=== PATIENT | female | born 1985 | race Caucasian/White ===

== ENCOUNTER 2016-10-29 16:22 | Emergency (ER) | payer OTHER ==
[~2016-10-29] VITALS: Ht 152.4 cm; Wt 64.0 kg
[~2016-10-29 16:22] MED LIST: ABILIFY10 MG PO; ABILIFY2 MG PO; AFRIN,GENASAL D15 ML BOTH NARES; ALPRAZOLAM0.25 M2 PO; ALPRAZOLAM0.5 MG PO; AMOX TR-K CLV1 EAC4 PO; BACTRIM,SEPT1 TABLET PO; BENADRYL25 MG PO; BENADRYL50 MG PO; CONCERTA18 MG PO; CONSTULOSE10 GM/15 M PO; CORTIZONE-10 PL57 GM TP; Chromagen, Feogen, M PO; DEBROX15 ML BOTH EARS; DIFLUCAN150 MG PO; ELIMITE 5% CREA60 GM TP; FLEXERIL10 MG PO; FLONASE16 G1 BOTH NARES; HYDROCORTISONE30 G1 TP; INHALER; KEFLEX500 MG PO; MEDROL DOSEPAK4 MG PO; MOTRIN600 MG PO; MOTRIN800 MG PO; MUCUS ER600 MG PO; Motrin PO; NAPROSYN500 MG PO; NAPROXEN500 MG PO; PEPCID40 MG PO; PREDNISONE20 MG PO; PROVENTIL HFA6.7 GM IH; RITALIN; RITALIN LA40 MG PO; RITALIN20 MG PO; TESSALON PERLE100 MG PO; TRAZODONE HCL50 MG PO; XANAX0.5 MG PO; ZITHROMAX Z-PA250 MG PO; ZOFRAN ODT4 MG PO; ZOFRAN4 MG PO; ZOLOFT50 MG PO
[2016-10-29 16:45] LABS: HEMATOCRIT 32.6 % (36.0-46.0); MCHC 34.7 G/DL (30.0-36.0); MCV 89.3 FL (83-99); MEAN PLAT.VOLUME 10.4 uM^3 (9.5-12.4); PLATELET COUNT 263 K/uL (156-360); RBC DIS.WIDTH-SD 40.9 % (39-53); RED BLOOD COUNT 3.65 M/uL (3.80-5.20); WHITE BLOOD COUNT 10.4 K/uL (4.1-10.2)
[2016-10-29 16:58] LABS: CHLORIDE 104 mEq/L (99-109); SODIUM 134 mEq/L (136-147)
[2016-10-29 17:00] LABS: GLUCOSE 71 mg/dL (70-99)
[2016-10-29 17:02] LABS: ANION GAP 9 MEQ/L (2-14); TOTAL BILIRUBIN 0.5 mg/dL (0.0-1.0)
[2016-10-29 17:04] LABS: ALKALINE PHOSPHATASE 39 IU/L (3-129); GFR ESTIMATE (CALCULATED) > 59 mL/min/
[2016-10-29 17:05] LABS: UREA NITROGEN (BUN) 13 mg/dL (9-23)
[2016-10-29 17:34] LABS: QUANTITATIVE HCG 180857.2 MIU/ML
[2016-10-29 19:24] LABS: D-DIMER ELISA 0.34 mg/L FEU (< 0.57)
[2016-10-29 20:17] LABS: ADD MIUA? YES; BILIRUBIN NEGATIVE; BLOOD NEGATIVE; COLOR YELLOW ((YELLOW)); GLUCOSE (STRIP) NEGATIVE; KETONES NEGATIVE; LEUKOCYTES SMALL; NITRITE NEGATIVE; PROTEIN (STRIP) NEGATIVE; SPECIFIC GRAVITY 1.026 (1.000-1.030)
[2016-10-29 20:53] LABS: BACTERIA 1+; CASTS PRESENT /LPF; CRYSTALS NONE SEEN; EPITHELIAL CELLS 1+; HYALINE CASTS 0-5 /LPF; MUCUS 1+; RED BLOOD CELLS 0-5 /HPF (0-5); UCUL ADDED? NO
[2016-10-29] MEDS ORDERED: ZOFRAN4 MG PO (22:42)
[2016-10-29 23:35] VITALS: BP 95/51
== END 2016-10-29 23:58 | disposition home or self-care (01) ==
LOC: EME 16:22
DX: O21.9 Vomiting of pregnancy, unspecified (principal); R10.9 Unspecified abdominal pain; R11.0 Nausea; F17.200 Nicotine dependence, unspecified, uncomplicated; Z3A.10 10 weeks gestation of pregnancy
CPT/HCPCS: 76801; 76802; 80053; 81003; 84702; 85027; 85379; 93005; 99281; 99284

== ENCOUNTER 2016-11-11 11:53 | Emergency (ER) | payer OTHER ==
[~2016-11-11] VITALS: Ht 152.4 cm; Wt 64.7 kg
[2016-11-11 12:44] LABS: HEMATOCRIT 30.9 % (36.0-46.0); MCH 30.8 PG (29.0-34.0); MCV 90.6 FL (83-99); MEAN PLAT.VOLUME 10.1 uM^3 (9.5-12.4); PLATELET COUNT 267 K/uL (156-360); RBC DIS.WIDTH-CV 13.2 % (11.8-14.6); RBC DIS.WIDTH-SD 42.4 % (39-53); RED BLOOD COUNT 3.41 M/uL (3.80-5.20); WHITE BLOOD COUNT 7.5 K/uL (4.1-10.2)
[2016-11-11 13:04] LABS: ANION GAP 7 MEQ/L (2-14); CHLORIDE 101 MEQ/L (99-109); POTASSIUM 3.8 MEQ/L (3.7-5.4); SAMPLE HEMOLYSIS CHECK 0; SAMPLE ICTERIC CHECK 0; SAMPLE LIPEMIA CHECK 0; SODIUM 136 MEQ/L (136-147)
[2016-11-11 13:09] LABS: GFR ESTIMATE (CALCULATED) > 59 mL/min/; GLUCOSE 79 mg/dL (70-99); UREA NITROGEN (BUN) 14 mg/dL (9-23)
[2016-11-11 13:25] LABS: ADD MIUA? YES; BILIRUBIN NEGATIVE; BLOOD NEGATIVE; COLOR YELLOW ((YELLOW)); GLUCOSE (STRIP) NEGATIVE; KETONES NEGATIVE; LEUKOCYTES MODERATE; NITRITE NEGATIVE; PROTEIN (STRIP) NEGATIVE; SPECIFIC GRAVITY 1.025 (1.000-1.030)
[2016-11-11 13:45] LABS: INFLUENZA A VIRAL ANTIGEN NEGATIVE; INFLUENZA B VIRAL ANTIGEN NEGATIVE
[2016-11-11 13:59] LABS: EPITHELIAL CELLS 1+; MUCUS NONE SEEN; RED BLOOD CELLS 0-5 /HPF (0-5); WHITE BLOOD CELLS 20-30 /HPF (0-5)
[2016-11-11 14:00] LABS: BACTERIA 2+; CASTS NONE SEEN /LPF; CRYSTALS NONE SEEN; UCUL ADDED? YES
[2016-11-11] MEDS ORDERED: MACROBID100 MG PO (14:07)
[2016-11-11 14:37] VITALS: BP 102/53
== END 2016-11-11 14:38 | disposition home or self-care (01) ==
LOC: EME 11:53
PROVIDERS: Nurse Practitioner Family
DX: O23.41 Unspecified infection of urinary tract in pregnancy, first trimester (principal); Z3A.12 12 weeks gestation of pregnancy; F17.200 Nicotine dependence, unspecified, uncomplicated
CPT/HCPCS: 80048; 81003; 85027; 87086; 87502; 99281; 99284

== ENCOUNTER 2016-11-15 17:44 | Emergency (ER) | payer OTHER ==
[~2016-11-15] VITALS: Ht 152.4 cm; Wt 64.5 kg
[~2016-11-15 17:44] MED LIST changes: +MACROBID100 MG PO
[2016-11-15 23:53] VITALS: BP 99/54
== END 2016-11-15 23:56 | disposition home or self-care (01) ==
LOC: EME 17:44
DX: S43.401A Unspecified sprain of right shoulder joint, initial encounter (principal); S93.402A Sprain of unspecified ligament of left ankle, initial encounter; Z33.1 Pregnant state, incidental; Z3A.12 12 weeks gestation of pregnancy; W01.0XXA Fall on same level from slipping, tripping and stumbling without subsequent striking against object, initial encounter; Y93.01 Activity, walking, marching and hiking; Y92.480 Sidewalk as the place of occurrence of the external cause
CPT/HCPCS: 73030; 73610; 73630; 99281; 99284

== ENCOUNTER 2017-01-06 19:29 | Outpatient (CLI) | payer OTHER ==
[~2017-01-06] VITALS: Ht 149.9 cm; Wt 65.3 kg
[2017-01-06 19:47] VITALS: BP 99/58
[2017-01-06] MEDS ORDERED: IRON325 MG PO (20:13)
[2017-01-06 22:07] LABS: ADD MIUA? YES; BILIRUBIN NEGATIVE; BLOOD NEGATIVE; COLOR YELLOW ((YELLOW)); GLUCOSE (STRIP) NEGATIVE; KETONES NEGATIVE; LEUKOCYTES SMALL; NITRITE NEGATIVE; PROTEIN (STRIP) NEGATIVE; SPECIFIC GRAVITY 1.031 (1.000-1.030)
[2017-01-06 22:14] LABS: BACTERIA RARE /HPF; EPITHELIAL CELLS 1+ /HPF; MUCUS 2+ /LPF; UNCLASSIFIED CRYSTALS 2+ /HPF; WHITE BLOOD CELLS 30-40 /HPF (0-5)
[2017-01-06 22:38] LABS: CANDIDA DNA PROBE NEGATIVE; GARDNERELLA DNA PROBE NEGATIVE; INTERNAL CONTROL VALID? YES
[2017-01-07 01:36] LABS: AMPHETAMINES QUANT VALUE 0 NG/ML; BARBITUATES QUANT VALUE 0 NG/ML; BENZODIAZEPINES QUANT VALUE 0 NG/ML; BENZODIAZEPINES, URINE SCREEN Negative (200 ng/mL); MARIJUANA QUANT VALUE 0 NG/ML; OPIATES QUANTITATIVE VALUE 0 NG/ML; PHENCYCLIDINE QUANT VALUE 0 NG/ML
[2017-01-07 13:13] LABS: CHLAMYDIA TRACHOMATIS NEGATIVE; NEISSERIA GONORRHOEAE NEGATIVE
== END 2017-01-06 23:12 | disposition home or self-care (01) ==
LOC: LDRP-OP 19:29 → 2WEST 19:30 → LDRP-OP 06-24 15:42
PROVIDERS: Advanced Practice Midwife; Obstetrics & Gynecology
DX: O26.892 Other specified pregnancy related conditions, second trimester (principal); Z3A.20 20 weeks gestation of pregnancy; R06.02 Shortness of breath; O30.042 Twin pregnancy, dichorionic/diamniotic, second trimester
CPT/HCPCS: 59025; 80306 90; 81003; 87086; 87480; 87491; 87510; 87591; 87660; 94640; 99202; G0378

== ENCOUNTER 2017-01-26 13:00 | Emergency (ER) | payer OTHER ==
[~2017-01-26] VITALS: Ht 152.4 cm; Wt 62.5 kg
[2017-01-26 11:52] VITALS: BP 98/69
[~2017-01-26 13:00] MED LIST changes: +IRON325 MG PO
[2017-01-26 13:33] VITALS: BP 116/69
== END 2017-01-26 14:40 | disposition home or self-care (01) ==
LOC: EME 13:00 → EDSTATUS 13:25 → EME 14:40 → LDRP-OP 06-24 23:36
DX: M79.671 Pain in right foot (principal); Z33.1 Pregnant state, incidental; Z3A.00 Weeks of gestation of pregnancy not specified
CPT/HCPCS: 59025

== ENCOUNTER 2017-02-02 12:03 | Emergency (ER) | payer OTHER ==
[~2017-02-02] VITALS: Ht 162.6 cm; Wt 65.8 kg
[2017-02-02 13:04] VITALS: BP 109/80
== END 2017-02-02 13:10 | disposition home or self-care (01) ==
LOC: EME 12:03
DX: O99.89 Other specified diseases and conditions complicating pregnancy, childbirth and the puerperium (principal); M25.531 Pain in right wrist; M79.641 Pain in right hand; M79.644 Pain in right finger(s); O99.332 Smoking (tobacco) complicating pregnancy, second trimester; Z3A.23 23 weeks gestation of pregnancy; F17.200 Nicotine dependence, unspecified, uncomplicated
CPT/HCPCS: 99281; 99284

== ENCOUNTER 2017-02-07 20:18 | Outpatient (CLI) | payer OTHER ==
[~2017-02-07] VITALS: Ht 152.4 cm; Wt 63.5 kg
[2017-02-07 20:59] VITALS: BP 106/62
[2017-02-07] MEDS ORDERED: ZOLOFT25 MG PO (21:14)
== END 2017-02-07 22:07 | disposition home or self-care (01) ==
LOC: LDRP-OP 20:18 → 2WEST 20:23
DX: O26.892 Other specified pregnancy related conditions, second trimester (principal); Z3A.24 24 weeks gestation of pregnancy; O30.042 Twin pregnancy, dichorionic/diamniotic, second trimester
CPT/HCPCS: 59025; 87086; G0378

== ENCOUNTER 2017-02-10 19:20 | Outpatient (CLI) | payer OTHER ==
[~2017-02-10] VITALS: Ht 152.4 cm; Wt 66.0 kg
[~2017-02-10 19:20] MED LIST changes: +ZOLOFT25 MG PO
[2017-02-10 20:18] LABS: HEMATOCRIT 27.7 % (36.0-46.0); MCH 30.5 PG (29.0-34.0); MCHC 33.9 G/DL (30.0-36.0); MCV 89.9 FL (83-99); MEAN PLAT.VOLUME 10.3 uM^3 (9.5-12.4); PLATELET COUNT 268 K/uL (156-360); RBC DIS.WIDTH-CV 14.4 % (11.8-14.6); RBC DIS.WIDTH-SD 46.4 % (39-53); RED BLOOD COUNT 3.08 M/uL (3.80-5.20); WHITE BLOOD COUNT 9.5 K/uL (4.1-10.2)
[2017-02-10 20:25] LABS: CHLORIDE 109 mEq/L (99-109); POTASSIUM 3.2 mEq/L (3.7-5.4); SODIUM 140 mEq/L (136-147)
[2017-02-10 20:26] LABS: GLUCOSE 69 mg/dL (70-99)
[2017-02-10 20:28] LABS: ANION GAP 10 MEQ/L (2-14)
[2017-02-10 20:30] LABS: GFR ESTIMATE (CALCULATED) > 59 mL/min/
[2017-02-10 20:31] LABS: UREA NITROGEN (BUN) 12 mg/dL (9-23)
[2017-02-10 20:36] LABS: TROP-I INTERPRETATION NEGATIVE; TROPONIN-I 0.02 ng/mL (0.0-0.30)
[2017-02-10 20:55] LABS: D-DIMER ELISA 0.78 mg/L FEU (< 0.57)
[2017-02-10 21:51] VITALS: BP 96/52
[2017-02-10 22:57] VITALS: BP 103/56
== END 2017-02-11 00:01 | disposition home or self-care (01) ==
LOC: EME 19:20 → LDRP-OP 19:20 → EME 21:28 → EDSTATUS 21:46 → 2WEST 21:48
PROVIDERS: Emergency Medicine
DX: O99.612 Diseases of the digestive system complicating pregnancy, second trimester (principal); O99.332 Smoking (tobacco) complicating pregnancy, second trimester; O30.042 Twin pregnancy, dichorionic/diamniotic, second trimester; R12 Heartburn; F17.210 Nicotine dependence, cigarettes, uncomplicated; Z3A.25 25 weeks gestation of pregnancy
CPT/HCPCS: 59025; 80048; 82731; 84484; 85027; 85379; 93005; 99281; 99284; G0378

== ENCOUNTER 2017-02-16 17:49 | Outpatient (CLI) | payer OTHER ==
[2017-02-16 18:10] VITALS: BP 114/56
[2017-02-16 19:49] LABS: ADD MIUA? YES; BILIRUBIN NEGATIVE; BLOOD NEGATIVE; COLOR YELLOW ((YELLOW)); GLUCOSE (STRIP) NEGATIVE; KETONES NEGATIVE; LEUKOCYTES MODERATE; NITRITE NEGATIVE; PROTEIN (STRIP) NEGATIVE; SPECIFIC GRAVITY 1.031 (1.000-1.030)
[2017-02-16 19:56] LABS: EOSINOPHIL (%) 0.4 % (0-5); IMMATURE GRANULOCYTE (%) 0.3 % (0.0-0.7); INSTRUMENT ABS NEUTROPHIL CT 5.3 K/uL; LYMPHOCYTE COUNT 1.8 K/uL (1.0-2.8); MCHC 33.1 G/DL (30.0-36.0); MCV 90.6 FL (83-99); MEAN PLAT.VOLUME 10.2 uM^3 (9.5-12.4); MONOCYTE (%) 4.8 % (3-12); MONOCYTE COUNT 0.4 K/uL (0-0.8); NEUTROPHIL (%) 70.1 % (45-76); NEUTROPHIL COUNT 5.3 K/uL (1.8-6.4); PLATELET COUNT 270 K/uL (156-360); RBC DIS.WIDTH-CV 14.5 % (11.8-14.6); RBC DIS.WIDTH-SD 47.3 % (39-53); WHITE BLOOD COUNT 7.6 K/uL (4.1-10.2)
[2017-02-16 20:02] LABS: BACTERIA 2+ /HPF; EPITHELIAL CELLS 1+ /HPF; MUCUS 1+ /LPF; UCUL ADDED? YES; WHITE BLOOD CELLS 30-40 /HPF (0-5); WHITE BLOOD CELLS CLUMP RARE /HPF (0-5)
[2017-02-16 20:09] LABS: CHLORIDE 108 mEq/L (99-109); POTASSIUM 3.8 mEq/L (3.7-5.4); SODIUM 137 mEq/L (136-147)
[2017-02-16 20:10] LABS: AMPHETAMINES QUANT VALUE 0 NG/ML; BARBITUATES QUANT VALUE 0 NG/ML; BENZODIAZEPINES QUANT VALUE 0 NG/ML; BENZODIAZEPINES, URINE SCREEN Negative (200 ng/mL); MARIJUANA QUANT VALUE 0 NG/ML; OPIATES QUANTITATIVE VALUE 0 NG/ML; PHENCYCLIDINE QUANT VALUE 0 NG/ML
[2017-02-16 20:11] LABS: GLUCOSE 63 mg/dL (70-99)
[2017-02-16 20:12] LABS: ANION GAP 10 MEQ/L (2-14)
[2017-02-16 20:13] LABS: TOTAL BILIRUBIN 0.3 mg/dL (0.0-1.0)
[2017-02-16 20:14] LABS: ALKALINE PHOSPHATASE 76 IU/L (3-129)
[2017-02-16 20:15] LABS: GFR ESTIMATE (CALCULATED) > 59 mL/min/
[2017-02-16 20:16] LABS: UREA NITROGEN (BUN) 16 mg/dL (9-23)
[2017-02-16 21:15] LABS: CANDIDA DNA PROBE NEGATIVE; GARDNERELLA DNA PROBE NEGATIVE; INTERNAL CONTROL VALID? YES
== END 2017-02-16 22:15 | disposition home or self-care (01) ==
LOC: LDRP-OP → 2WEST 17:50 → LDRP-OP 06-24 23:14
PROVIDERS: Advanced Practice Midwife
DX: O47.02 False labor before 37 completed weeks of gestation, second trimester (principal); Z3A.26 26 weeks gestation of pregnancy; O30.002 Twin pregnancy, unspecified number of placenta and unspecified number of amniotic sacs, second trimester; F31.9 Bipolar disorder, unspecified; J45.909 Unspecified asthma, uncomplicated; O99.332 Smoking (tobacco) complicating pregnancy, second trimester; F17.200 Nicotine dependence, unspecified, uncomplicated
CPT/HCPCS: 59025; 80053; 80306 90; 81003; 85025; 87086; 87480; 87510; 87660; G0378; J7120

== ENCOUNTER 2017-02-19 17:53 | Emergency (ER) | payer OTHER ==
[~2017-02-19] VITALS: Ht 152.4 cm; Wt 66.3 kg
[2017-02-19 20:14] VITALS: BP 113/77
== END 2017-02-19 20:15 | disposition home or self-care (01) ==
LOC: EME 17:53
DX: O99.512 Diseases of the respiratory system complicating pregnancy, second trimester (principal); J06.9 Acute upper respiratory infection, unspecified; O99.89 Other specified diseases and conditions complicating pregnancy, childbirth and the puerperium; M25.531 Pain in right wrist; M25.571 Pain in right ankle and joints of right foot; O30.002 Twin pregnancy, unspecified number of placenta and unspecified number of amniotic sacs, second trimester; O99.332 Smoking (tobacco) complicating pregnancy, second trimester; F17.200 Nicotine dependence, unspecified, uncomplicated; O99.342 Other mental disorders complicating pregnancy, second trimester; F31.9 Bipolar disorder, unspecified; Z3A.26 26 weeks gestation of pregnancy
CPT/HCPCS: 99281; 99284

== ENCOUNTER 2017-02-20 02:22 | Outpatient (CLI) | payer OTHER ==
[2017-02-20 02:50] VITALS: BP 103/64
[2017-02-21] MEDS ORDERED: PROTONIX40 MG PO (23:39)
[2017-02-21] MEDS ORDERED: ZOFRAN ODT4 MG PO (23:39)
== END 2017-02-20 03:25 | disposition home or self-care (01) ==
LOC: LDRP-OP 02:22 → 2WEST 02:23 → LDRP-OP 06-27 22:29
DX: O42.912 Preterm premature rupture of membranes, unspecified as to length of time between rupture and onset of labor, second trimester (principal); O30.042 Twin pregnancy, dichorionic/diamniotic, second trimester; O32.1XX0 Maternal care for breech presentation, not applicable or unspecified; Z3A.26 26 weeks gestation of pregnancy; O99.332 Smoking (tobacco) complicating pregnancy, second trimester; F17.210 Nicotine dependence, cigarettes, uncomplicated; F31.9 Bipolar disorder, unspecified
CPT/HCPCS: 59025; G0378

== ENCOUNTER 2017-02-21 20:38 | Emergency (ER) | payer OTHER ==
[~2017-02-21] VITALS: Ht 154.9 cm; Wt 65.9 kg
[2017-02-21 22:38] LABS: CHLORIDE 109 mEq/L (99-109); POTASSIUM 3.3 mEq/L (3.7-5.4); SODIUM 137 mEq/L (136-147)
[2017-02-21 22:40] LABS: GLUCOSE 65 mg/dL (70-99); PROTHROMBIN TIME 10.4 (9.2-11.2); PTT 29.3 (25-32)
[2017-02-21 22:41] LABS: ANION GAP 11 MEQ/L (2-14)
[2017-02-21 22:42] LABS: HEMATOCRIT 28.9 % (36.0-46.0); MCH 30.2 PG (29.0-34.0); MCHC 33.2 G/DL (30.0-36.0); MCV 90.9 FL (83-99); MEAN PLAT.VOLUME 10.7 uM^3 (9.5-12.4); PLATELET COUNT 255 K/uL (156-360); RBC DIS.WIDTH-CV 14.6 % (11.8-14.6); RBC DIS.WIDTH-SD 48.5 % (39-53); RED BLOOD COUNT 3.18 M/uL (3.80-5.20); WHITE BLOOD COUNT 8.8 K/uL (4.1-10.2)
[2017-02-21 22:43] LABS: ALKALINE PHOSPHATASE 70 IU/L (3-129)
[2017-02-21 22:44] LABS: GFR ESTIMATE (CALCULATED) > 59 mL/min/
[2017-02-21 22:45] LABS: UREA NITROGEN (BUN) 15 mg/dL (9-23)
[2017-02-21 22:47] LABS: LIPASE 21 U/L (1.0-51.0)
[2017-02-21 22:49] LABS: TOTAL BILIRUBIN 0.5 mg/dL (0.0-1.0)
[2017-02-21] MEDS ORDERED: PROTONIX40 MG PO (23:39)
[2017-02-21] MEDS ORDERED: ZOFRAN ODT4 MG PO (23:39)
[2017-02-22 00:05] VITALS: BP 109/57
[2017-02-22] MEDS ORDERED: IRON160 M1 PO (17:38)
[2017-02-22] MEDS ORDERED: AMOXICILLIN500 MG PO (17:39)
[2017-02-23] MEDS ORDERED: ZOFRAN4 MG PO (16:56)
[2017-02-23] MEDS ORDERED: REGLAN10 MG PO (16:56)
== END 2017-02-22 00:07 | disposition home or self-care (01) ==
LOC: EME 20:38
PROVIDERS: Physician Assistant
DX: O99.612 Diseases of the digestive system complicating pregnancy, second trimester (principal); K92.0 Hematemesis; O30.002 Twin pregnancy, unspecified number of placenta and unspecified number of amniotic sacs, second trimester; Z3A.27 27 weeks gestation of pregnancy; O99.342 Other mental disorders complicating pregnancy, second trimester; F31.9 Bipolar disorder, unspecified; O99.332 Smoking (tobacco) complicating pregnancy, second trimester; F17.200 Nicotine dependence, unspecified, uncomplicated
CPT/HCPCS: 80053; 81003; 82271; 83690; 85027; 85610; 85730; 86900; 86901; 99281; 99285; C9113; J7030; S0028

== ENCOUNTER 2017-02-23 15:55 | Outpatient (CLI) | payer OTHER ==
[~2017-02-23 15:55] MED LIST changes: +AMOXICILLIN500 MG PO; +IRON160 M1 PO; +PROTONIX40 MG PO
[2017-02-23 16:01] VITALS: BP 134/62
[2017-02-23] MEDS ORDERED: ZOFRAN4 MG PO (16:56)
[2017-02-23] MEDS ORDERED: REGLAN10 MG PO (16:56)
[2017-02-23 17:09] LABS: ADD MIUA? YES; BILIRUBIN NEGATIVE; BLOOD NEGATIVE; COLOR YELLOW ((YELLOW)); GLUCOSE (STRIP) NEGATIVE; KETONES NEGATIVE; LEUKOCYTES MODERATE; NITRITE NEGATIVE; PROTEIN (STRIP) NEGATIVE; SPECIFIC GRAVITY 1.026 (1.000-1.030); UROBILINOGEN 0.2 MG/DL (0.2-1.0)
[2017-02-23 17:23] LABS: BACTERIA RARE /HPF; EPITHELIAL CELLS 1+ /HPF; MUCUS 3+ /LPF; WHITE BLOOD CELLS 15-20 /HPF (0-5)
[2017-02-23 17:37] VITALS: BP 104/56
[2017-02-23 19:05] LABS: CANDIDA DNA PROBE NEGATIVE; GARDNERELLA DNA PROBE NEGATIVE; INTERNAL CONTROL VALID? YES
== END 2017-02-23 18:20 | disposition home or self-care (01) ==
LOC: LDRP-OP → 2WEST 15:56 → LDRP-OP 06-27 04:15
PROVIDERS: Obstetrics & Gynecology Obstetrics
DX: O46.92 Antepartum hemorrhage, unspecified, second trimester (principal); Z3A.27 27 weeks gestation of pregnancy; O26.892 Other specified pregnancy related conditions, second trimester; R11.2 Nausea with vomiting, unspecified; O30.042 Twin pregnancy, dichorionic/diamniotic, second trimester
CPT/HCPCS: 59025; 81003; 87480; 87510; 87660; G0378

== ENCOUNTER 2017-03-01 23:03 | Outpatient (CLI) | payer OTHER ==
[~2017-03-01 23:03] MED LIST changes: +REGLAN10 MG PO
[2017-03-01 23:19] VITALS: BP 112/69
== END 2017-03-02 00:12 | disposition home or self-care (01) ==
LOC: LDRP-OP 23:03 → 2WEST 23:04 → LDRP-OP 06-27 18:44
DX: O36.8130 Decreased fetal movements, third trimester, not applicable or unspecified (principal); O30.043 Twin pregnancy, dichorionic/diamniotic, third trimester; Z3A.28 28 weeks gestation of pregnancy
CPT/HCPCS: 59025; G0378

== ENCOUNTER 2017-03-03 19:50 | Emergency (ER) | payer OTHER ==
[~2017-03-03] VITALS: Ht 152.4 cm; Wt 65.2 kg
[2017-03-03 21:31] LABS: ADD MIUA? YES; BILIRUBIN NEGATIVE; BLOOD NEGATIVE; COLOR YELLOW ((YELLOW)); GLUCOSE (STRIP) NEGATIVE; KETONES 5; LEUKOCYTES SMALL; NITRITE NEGATIVE; PROTEIN (STRIP) 30; SPECIFIC GRAVITY 1.027 (1.000-1.030)
[2017-03-03 21:37] LABS: BACTERIA RARE /HPF; EPITHELIAL CELLS 1+ /HPF; MUCUS 3+ /LPF; UNCLASSIFIED CRYSTALS 2+ /HPF; WHITE BLOOD CELLS 20-30 /HPF (0-5)
[2017-03-03 22:41] VITALS: BP 110/74
== END 2017-03-03 22:41 | disposition home or self-care (01) ==
LOC: EME 19:50
PROVIDERS: Physician Assistant
DX: L30.8 Other specified dermatitis (principal); B37.9 Candidiasis, unspecified; M77.41 Metatarsalgia, right foot; Z87.440 Personal history of urinary (tract) infections; F17.200 Nicotine dependence, unspecified, uncomplicated
CPT/HCPCS: 81003; 99281; 99283

== ENCOUNTER 2017-03-05 20:39 | Outpatient (CLI) | payer OTHER ==
[2017-03-05 21:37] VITALS: BP 105/59
[2017-03-05 23:54] LABS: ADD MIUA? YES; BILIRUBIN NEGATIVE; BLOOD NEGATIVE; COLOR YELLOW ((YELLOW)); GLUCOSE (STRIP) NEGATIVE; KETONES NEGATIVE; LEUKOCYTES SMALL; NITRITE NEGATIVE; PROTEIN (STRIP) NEGATIVE; SPECIFIC GRAVITY 1.025 (1.000-1.030); UROBILINOGEN 0.2 MG/DL (0.2-1.0)
[2017-03-06 00:02] LABS: BACTERIA RARE /HPF; EPITHELIAL CELLS RARE /HPF; MUCUS TRACE /LPF; UCUL ADDED? NO; WHITE BLOOD CELLS 0-5 /HPF (0-5)
[2017-03-06 05:00] LABS: CANDIDA DNA PROBE NEGATIVE; GARDNERELLA DNA PROBE NEGATIVE; INTERNAL CONTROL VALID? YES
== END 2017-03-06 00:45 | disposition home or self-care (01) ==
LOC: LDRP-OP 20:39 → 2WEST 20:40 → LDRP-OP 06-27 00:15
PROVIDERS: Advanced Practice Midwife
DX: O47.02 False labor before 37 completed weeks of gestation, second trimester (principal); Z3A.28 28 weeks gestation of pregnancy
CPT/HCPCS: 59025; 81003; 82731; 87086; 87480; 87510; 87660; G0378

== ENCOUNTER 2017-03-09 22:23 | Emergency (ER) | payer OTHER ==
[~2017-03-09] VITALS: Ht 152.4 cm; Wt 66.2 kg
[2017-03-09 23:34] LABS: ADD MIUA? YES; BILIRUBIN NEGATIVE; BLOOD NEGATIVE; COLOR YELLOW ((YELLOW)); GLUCOSE (STRIP) NEGATIVE; KETONES NEGATIVE; LEUKOCYTES MODERATE; NITRITE NEGATIVE; PROTEIN (STRIP) NEGATIVE; SPECIFIC GRAVITY 1.023 (1.000-1.030); UROBILINOGEN 0.2 MG/DL (0.2-1.0)
[2017-03-09 23:43] LABS: BACTERIA RARE /HPF; EPITHELIAL CELLS 1+ /HPF; MUCUS TRACE /LPF; RED BLOOD CELLS 0-5 /HPF (0-5); UCUL ADDED? NO; WHITE BLOOD CELLS 30-40 /HPF (0-5)
[2017-03-09] MEDS ORDERED: NYSTATIN15 GM TP (23:52)
[2017-03-09] MEDS ORDERED: MACROBID100 MG PO (23:52)
[2017-03-10 00:18] VITALS: BP 128/74
== END 2017-03-10 00:25 | disposition home or self-care (01) ==
LOC: EXP 22:23 → EME 22:23 → EXP 03-10 00:25
PROVIDERS: Physician Assistant
DX: O23.43 Unspecified infection of urinary tract in pregnancy, third trimester (principal); O98.813 Other maternal infectious and parasitic diseases complicating pregnancy, third trimester; B37.9 Candidiasis, unspecified; Z3A.29 29 weeks gestation of pregnancy
CPT/HCPCS: 81003; 99281; 99284

== ENCOUNTER 2017-03-11 19:14 | Emergency (ER) | payer OTHER ==
[~2017-03-11] VITALS: Ht 152.4 cm; Wt 65.9 kg
[~2017-03-11 19:14] MED LIST changes: +NYSTATIN15 GM TP
[2017-03-11 19:58] VITALS: BP 105/72
== END 2017-03-11 19:59 | disposition home or self-care (01) ==
LOC: EME 19:14
DX: O26.891 Other specified pregnancy related conditions, first trimester (principal); R21 Rash and other nonspecific skin eruption; O99.334 Smoking (tobacco) complicating childbirth; F17.200 Nicotine dependence, unspecified, uncomplicated; Z3A.29 29 weeks gestation of pregnancy
CPT/HCPCS: 99281; 99283

== ENCOUNTER 2017-03-13 02:11 | Emergency (ER) | payer OTHER ==
[~2017-03-13] VITALS: Ht 154.9 cm; Wt 65.4 kg
[2017-03-13] MEDS ORDERED: BENADRYL50 MG PO (04:07)
[2017-03-13] MEDS ORDERED: PEPCID20 MG PO (04:07)
[2017-03-13 04:27] VITALS: BP 110/78
== END 2017-03-13 04:28 | disposition home or self-care (01) ==
LOC: EME 02:11
DX: O26.893 Other specified pregnancy related conditions, third trimester (principal); L29.9 Pruritus, unspecified; O99.333 Smoking (tobacco) complicating pregnancy, third trimester; F17.200 Nicotine dependence, unspecified, uncomplicated; Z3A.29 29 weeks gestation of pregnancy
CPT/HCPCS: 99281; 99284

== ENCOUNTER 2017-03-15 23:33 | Outpatient (CLI) | payer OTHER ==
[~2017-03-15 23:33] MED LIST changes: +PEPCID20 MG PO
[2017-03-15 23:58] VITALS: BP 111/70
[2017-03-16 01:38] VITALS: BP 111/70
[2017-03-16 03:11] LABS: POINT-OF-CARE METER ID UU14188576
[2017-03-16 03:23] LABS: ADD MIUA? YES; BILIRUBIN NEGATIVE; BLOOD NEGATIVE; COLOR AMBER ((YELLOW)); GLUCOSE (STRIP) NEGATIVE; KETONES NEGATIVE; LEUKOCYTES SMALL; NITRITE NEGATIVE; PROTEIN (STRIP) 30; SPECIFIC GRAVITY 1.026 (1.000-1.030)
[2017-03-16 03:41] LABS: BACTERIA NONE SEEN /HPF; EPITHELIAL CELLS RARE /HPF; MUCUS 2+ /LPF; RED BLOOD CELLS 0-5 /HPF (0-5); UCUL ADDED? NO; WHITE BLOOD CELLS 15-20 /HPF (0-5); WHITE BLOOD CELLS CLUMP RARE /HPF (0-5)
[2017-03-16 03:51] LABS: AMPHETAMINES QUANT VALUE 0 NG/ML; BARBITUATES QUANT VALUE 0 NG/ML; BENZODIAZEPINES, URINE SCREEN POSITIVE (200 ng/mL); MARIJUANA QUANT VALUE 0 NG/ML; OPIATES QUANTITATIVE VALUE 0 NG/ML; PHENCYCLIDINE QUANT VALUE 0 NG/ML
[2017-03-16 05:55] LABS: CANDIDA DNA PROBE NEGATIVE; GARDNERELLA DNA PROBE POSITIVE; INTERNAL CONTROL VALID? YES
[2017-03-17] MEDS ORDERED: IRON325 MG PO (19:43)
[2017-03-17] MEDS ORDERED: ZOLOFT50 MG PO (19:45)
[2017-03-17] MEDS ORDERED: METRONIDAZOLE500 MG PO (19:57)
== END 2017-03-16 03:05 | disposition left against medical advice (07) ==
LOC: LDRP-OP 23:33 → 2WEST 23:34 → LDRP-OP 06-27 01:32
PROVIDERS: Advanced Practice Midwife; Obstetrics & Gynecology
DX: O60.03 Preterm labor without delivery, third trimester (principal); Z53.20 Procedure and treatment not carried out because of patient's decision for unspecified reasons; Z3A.30 30 weeks gestation of pregnancy; O30.043 Twin pregnancy, dichorionic/diamniotic, third trimester; F31.9 Bipolar disorder, unspecified; O99.343 Other mental disorders complicating pregnancy, third trimester; O99.513 Diseases of the respiratory system complicating pregnancy, third trimester; J45.909 Unspecified asthma, uncomplicated; O99.333 Smoking (tobacco) complicating pregnancy, third trimester; F17.210 Nicotine dependence, cigarettes, uncomplicated
CPT/HCPCS: 59025; 80306 90; 81003; 82731; 82948; 87086; 87480; 87510; 87660; G0378; J3105; J7120

== ENCOUNTER 2017-03-17 18:08 | Outpatient (CLI) | payer OTHER ==
[2017-03-17 18:24] VITALS: BP 113/67
[2017-03-17 19:36] VITALS: BP 111/69
[2017-03-17] MEDS ORDERED: IRON325 MG PO (19:43)
[2017-03-17] MEDS ORDERED: ZOLOFT50 MG PO (19:45)
[2017-03-17] MEDS ORDERED: METRONIDAZOLE500 MG PO (19:57)
== END 2017-03-17 20:35 | disposition home or self-care (01) ==
LOC: LDRP-OP 18:08 → 2WEST 18:11 → LDRP-OP 06-27 03:45
DX: O23.43 Unspecified infection of urinary tract in pregnancy, third trimester (principal); N76.0 Acute vaginitis; O30.003 Twin pregnancy, unspecified number of placenta and unspecified number of amniotic sacs, third trimester; O99.343 Other mental disorders complicating pregnancy, third trimester; Z3A.30 30 weeks gestation of pregnancy
CPT/HCPCS: G0378

== ENCOUNTER 2017-03-23 17:50 | Outpatient (CLI) | payer OTHER ==
[~2017-03-23 17:50] MED LIST changes: +METRONIDAZOLE500 MG PO
[2017-03-23 18:26] VITALS: BP 117/61
[2017-03-23 19:24] LABS: ADD MIUA? YES; BILIRUBIN NEGATIVE; BLOOD NEGATIVE; COLOR YELLOW ((YELLOW)); GLUCOSE (STRIP) NEGATIVE; KETONES NEGATIVE; LEUKOCYTES NEGATIVE; NITRITE NEGATIVE; PROTEIN (STRIP) NEGATIVE; SPECIFIC GRAVITY 1.025 (1.000-1.030); UROBILINOGEN 0.2 MG/DL (0.2-1.0)
[2017-03-23 19:28] LABS: BACTERIA RARE /HPF; EPITHELIAL CELLS 1+ /HPF; MUCUS TRACE /LPF; RED BLOOD CELLS 20-30 /HPF (0-5); UCUL ADDED? NO; WHITE BLOOD CELLS 0-5 /HPF (0-5)
[2017-03-23 20:06] LABS: AMPHETAMINE NEGATIVE (500 ng/mL); BARBITURATES NEGATIVE (200 ng/mL); BENZODIAZEPINES NEGATIVE (150 ng/mL); COCAINE NEGATIVE (150 ng/mL); INTERNAL CONTROLS VALID? YES; METHADONE NEGATIVE (200 ng/mL); METHAMPHETAMINE NEGATIVE (500 ng/mL); OPIATES (MORPHINE) NEGATIVE (100 ng/mL); OXYCODONE NEGATIVE (100 ng/mL); PHENCYCLIDINE NEGATIVE (25 ng/mL); PROPOXYPHENE NEGATIVE (300 ng/mL); THC CANNABINOIDS NEGATIVE (50 ng/mL); TRICYCLIC ANTIDEPRESSANTS NEGATIVE (300 ng/mL)
[2017-03-23 23:01] LABS: CANDIDA DNA PROBE NEGATIVE; GARDNERELLA DNA PROBE NEGATIVE; INTERNAL CONTROL VALID? YES
== END 2017-03-23 19:50 | disposition home or self-care (01) ==
LOC: LDRP-OP 17:50 → 2WEST 17:51 → LDRP-OP 06-27 20:39
PROVIDERS: Advanced Practice Midwife
DX: O60.03 Preterm labor without delivery, third trimester (principal); O30.043 Twin pregnancy, dichorionic/diamniotic, third trimester; Z3A.31 31 weeks gestation of pregnancy
CPT/HCPCS: 59025; 81003; 87086; 87480; 87510; 87660; G0378

== ENCOUNTER 2017-03-29 16:24 | Outpatient (CLI) | payer OTHER ==
[~2017-03-29] VITALS: Ht 152.4 cm; Wt 65.5 kg
[2017-03-29 16:40] VITALS: BP 149/71
[2017-03-29 17:22] VITALS: BP 185/65
[2017-03-29 17:24] VITALS: BP 169/67
[2017-03-29 18:13] LABS: EOSINOPHIL (%) 0.4 % (0-5); HEMATOCRIT 30.1 % (36.0-46.0); IMMATURE GRANULOCYTE (%) 0.5 % (0.0-0.7); INSTRUMENT ABS NEUTROPHIL CT 6.2 K/uL; LYMPHOCYTE COUNT 1.3 K/uL (1.0-2.8); MCH 31.3 PG (29.0-34.0); MCHC 33.9 G/DL (30.0-36.0); MCV 92.3 FL (83-99); MEAN PLAT.VOLUME 11.3 uM^3 (9.5-12.4); MONOCYTE (%) 5.1 % (3-12); MONOCYTE COUNT 0.4 K/uL (0-0.8); NEUTROPHIL (%) 77.4 % (45-76); NEUTROPHIL COUNT 6.2 K/uL (1.8-6.4); PLATELET COUNT 207 K/uL (156-360); RBC DIS.WIDTH-CV 16.2 % (11.8-14.6); RBC DIS.WIDTH-SD 54.5 % (39-53); RED BLOOD COUNT 3.26 M/uL (3.80-5.20)
[2017-03-29 18:15] VITALS: BP 113/82
[2017-03-29 18:23] LABS: ADD MIUA? YES; BILIRUBIN NEGATIVE; BLOOD NEGATIVE; COLOR YELLOW ((YELLOW)); GLUCOSE (STRIP) NEGATIVE; KETONES NEGATIVE; LEUKOCYTES TRACE; NITRITE NEGATIVE; PROTEIN (STRIP) NEGATIVE; UROBILINOGEN 0.2 MG/DL (0.2-1.0)
[2017-03-29 18:24] LABS: ANION GAP 11 MEQ/L (2-14); CHLORIDE 103 MEQ/L (99-109); POTASSIUM 3.4 MEQ/L (3.7-5.4); SAMPLE HEMOLYSIS CHECK 0; SAMPLE ICTERIC CHECK 0; SAMPLE LIPEMIA CHECK 1; SODIUM 132 MEQ/L (136-147); TOTAL BILIRUBIN 0.4 MG/DL (0.0-1.0)
[2017-03-29 18:30] VITALS: BP 106/65
[2017-03-29 18:30] LABS: ALKALINE PHOSPHATASE 111 IU/L (3-129); GFR ESTIMATE (CALCULATED) > 59 mL/min/; GLUCOSE 58 mg/dL (70-99); LACTATE DEHYDROGENASE 109 IU/L (20-246); UREA NITROGEN (BUN) 20 mg/dL (9-23); URIC ACID 4.2 mg/dL (3.1-9.2)
[2017-03-29 18:38] LABS: BACTERIA RARE /HPF; EPITHELIAL CELLS 1+ /HPF; MUCUS 2+ /LPF; RED BLOOD CELLS 0-5 /HPF (0-5); UCUL ADDED? NO; WHITE BLOOD CELLS 0-5 /HPF (0-5)
[2017-03-29 18:48] LABS: UR CREATININE CONCENTRATION 142.8 MG/DL
[2017-03-29 19:04] LABS: Estimated Average Glucose 62 mg/dL (70-123)
[2017-03-29 19:40] LABS: HEMOGLOBIN A1c (GLYCOHEMOGLOB) 3.8 % HGB (Below 5.7)
[2017-03-29 19:43] LABS: AMPHETAMINE NEGATIVE (500 ng/mL); BARBITURATES NEGATIVE (200 ng/mL); BENZODIAZEPINES NEGATIVE (150 ng/mL); COCAINE NEGATIVE (150 ng/mL); INTERNAL CONTROLS VALID? YES; METHADONE NEGATIVE (200 ng/mL); METHAMPHETAMINE NEGATIVE (500 ng/mL); OPIATES (MORPHINE) NEGATIVE (100 ng/mL); OXYCODONE NEGATIVE (100 ng/mL); PHENCYCLIDINE NEGATIVE (25 ng/mL); PROPOXYPHENE NEGATIVE (300 ng/mL); THC CANNABINOIDS NEGATIVE (50 ng/mL); TRICYCLIC ANTIDEPRESSANTS NEGATIVE (300 ng/mL)
[2017-03-29 22:48] LABS: CANDIDA DNA PROBE NEGATIVE; GARDNERELLA DNA PROBE NEGATIVE
[2017-03-29 22:50] LABS: INTERNAL CONTROL VALID? YES
[2017-04-01 13:21] LABS: CHLAMYDIA TRACHOMATIS NEGATIVE; NEISSERIA GONORRHOEAE NEGATIVE
== END 2017-03-29 19:55 | disposition left against medical advice (07) ==
LOC: LDRP-OP 16:24 → 2WEST 16:25 → LDRP-OP 06-27 19:55
PROVIDERS: Obstetrics & Gynecology
DX: O60.03 Preterm labor without delivery, third trimester (principal); Z3A.32 32 weeks gestation of pregnancy; O30.043 Twin pregnancy, dichorionic/diamniotic, third trimester; O32.1XX0 Maternal care for breech presentation, not applicable or unspecified; O36.5932 Maternal care for other known or suspected poor fetal growth, third trimester, fetus 2; Z53.20 Procedure and treatment not carried out because of patient's decision for unspecified reasons; O99.513 Diseases of the respiratory system complicating pregnancy, third trimester; J45.909 Unspecified asthma, uncomplicated
CPT/HCPCS: 59025; 80053; 81003; 82570; 83036; 83615; 84156; 84550; 85025; 87086; 87480; 87491; 87510; 87591; 87660; G0378; J0702

== ENCOUNTER 2017-03-30 18:04 | Outpatient (CLI) | payer OTHER ==
[2017-03-30 18:33] VITALS: BP 110/62
[2017-03-30 19:11] VITALS: BP 113/75
[2017-03-30 21:09] VITALS: BP 116/72
[2017-03-30 22:52] VITALS: BP 116/66
== END 2017-03-30 23:40 | disposition home or self-care (01) ==
LOC: LDRP-OP 18:04 → 2WEST 18:07 → LDRP-OP 06-27 20:26
DX: O34.33 Maternal care for cervical incompetence, third trimester (principal); O30.043 Twin pregnancy, dichorionic/diamniotic, third trimester; Z3A.32 32 weeks gestation of pregnancy; O32.1XX0 Maternal care for breech presentation, not applicable or unspecified
CPT/HCPCS: 59025; 76810; 76818; G0378

== ENCOUNTER 2017-04-02 14:13 | Outpatient (CLI) | payer OTHER ==
[2017-04-02 14:35] VITALS: BP 110/63
== END 2017-04-02 16:30 | disposition home or self-care (01) ==
LOC: LDRP-OP 14:13 → 2WEST 14:14 → LDRP-OP 06-27 23:50
DX: O60.03 Preterm labor without delivery, third trimester (principal); Z3A.32 32 weeks gestation of pregnancy; O30.043 Twin pregnancy, dichorionic/diamniotic, third trimester
CPT/HCPCS: 59025; G0378

== ENCOUNTER 2017-04-07 23:56 | Outpatient (CLI) | payer OTHER ==
[2017-04-08 00:13] VITALS: BP 116/77
[2017-04-08 02:13] VITALS: BP 119/81
[2017-04-08 07:02] LABS: ADD MIUA? YES; BILIRUBIN NEGATIVE; BLOOD SMALL; COLOR YELLOW ((YELLOW)); GLUCOSE (STRIP) NEGATIVE; KETONES NEGATIVE; LEUKOCYTES TRACE; NITRITE NEGATIVE; PROTEIN (STRIP) NEGATIVE; SPECIFIC GRAVITY 1.016 (1.000-1.030); UROBILINOGEN 0.2 MG/DL (0.2-1.0)
[2017-04-08 07:13] LABS: BACTERIA RARE /HPF; EPITHELIAL CELLS 1+ /HPF; MUCUS TRACE /LPF; RED BLOOD CELLS 0-5 /HPF (0-5); WHITE BLOOD CELLS 0-5 /HPF (0-5)
== END 2017-04-08 04:05 | disposition left against medical advice (07) ==
LOC: LDRP-OP 23:56 → 2WEST 23:57 → LDRP-OP 06-27 16:47
PROVIDERS: Advanced Practice Midwife
DX: O60.03 Preterm labor without delivery, third trimester (principal); Z3A.33 33 weeks gestation of pregnancy; O30.043 Twin pregnancy, dichorionic/diamniotic, third trimester
CPT/HCPCS: 59025; 81003; G0378; J7120

== ENCOUNTER 2017-04-09 14:04 | Outpatient (CLI) | payer OTHER ==
[~2017-04-09] VITALS: Ht 152.4 cm; Wt 63.6 kg
[2017-04-09 14:35] VITALS: BP 117/70
== END 2017-04-09 17:25 | disposition home or self-care (01) ==
LOC: LDRP-OP 14:04 → 2WEST 14:05 → LDRP-OP 06-27 04:48
DX: O60.03 Preterm labor without delivery, third trimester (principal); O32.1XX0 Maternal care for breech presentation, not applicable or unspecified; O30.003 Twin pregnancy, unspecified number of placenta and unspecified number of amniotic sacs, third trimester; Z3A.33 33 weeks gestation of pregnancy
CPT/HCPCS: 59025; G0378

== ENCOUNTER 2017-04-12 22:31 | Outpatient (CLI) | payer OTHER ==
[~2017-04-12] VITALS: Ht 152.4 cm; Wt 66.0 kg
[2017-04-12 22:52] VITALS: BP 108/59
[2017-04-12 23:55] LABS: ADD MIUA? YES; BILIRUBIN NEGATIVE; BLOOD NEGATIVE; COLOR YELLOW ((YELLOW)); GLUCOSE (STRIP) NEGATIVE; KETONES NEGATIVE; LEUKOCYTES NEGATIVE; NITRITE NEGATIVE; PROTEIN (STRIP) NEGATIVE; SPECIFIC GRAVITY 1.026 (1.000-1.030)
[2017-04-13 00:09] LABS: BACTERIA RARE /HPF; EPITHELIAL CELLS RARE /HPF; MUCUS 1+ /LPF; RED BLOOD CELLS 20-30 /HPF (0-5); WHITE BLOOD CELLS 0-5 /HPF (0-5)
[2017-04-13 00:14] LABS: AMPHETAMINE NEGATIVE (500 ng/mL); BARBITURATES NEGATIVE (200 ng/mL); BENZODIAZEPINES NEGATIVE (150 ng/mL); COCAINE NEGATIVE (150 ng/mL); INTERNAL CONTROLS VALID? YES; METHADONE NEGATIVE (200 ng/mL); METHAMPHETAMINE NEGATIVE (500 ng/mL); OPIATES (MORPHINE) NEGATIVE (100 ng/mL); OXYCODONE NEGATIVE (100 ng/mL); PHENCYCLIDINE NEGATIVE (25 ng/mL); PROPOXYPHENE NEGATIVE (300 ng/mL); THC CANNABINOIDS NEGATIVE (50 ng/mL); TRICYCLIC ANTIDEPRESSANTS NEGATIVE (300 ng/mL)
[2017-04-14] MEDS ORDERED: FAMOTIDINE20 MG PO (15:21)
[2017-04-14] MEDS ORDERED: PROCARDIA10 MG PO (17:57)
== END 2017-04-13 00:50 | disposition home or self-care (01) ==
LOC: LDRP-OP 22:31 → 2WEST 22:32 → LDRP-OP 06-27 18:13
PROVIDERS: Advanced Practice Midwife
DX: O47.03 False labor before 37 completed weeks of gestation, third trimester (principal); O32.1XX1 Maternal care for breech presentation, fetus 1; O30.043 Twin pregnancy, dichorionic/diamniotic, third trimester; Z3A.34 34 weeks gestation of pregnancy
CPT/HCPCS: 59025; 81003; 87086; G0378; J7120

== ENCOUNTER 2017-04-14 14:49 | Outpatient (CLI) | payer OTHER ==
[~2017-04-14] VITALS: Ht 152.4 cm; Wt 66.2 kg
[2017-04-14] MEDS ORDERED: FAMOTIDINE20 MG PO (15:21)
[2017-04-14 16:32] VITALS: BP 114/81
[2017-04-14] MEDS ORDERED: PROCARDIA10 MG PO (17:57)
== END 2017-04-14 18:15 | disposition home or self-care (01) ==
LOC: LDRP-OP 14:49 → 2WEST 14:52 → LDRP-OP 06-27 04:10
DX: O60.03 Preterm labor without delivery, third trimester (principal); O32.9XX1 Maternal care for malpresentation of fetus, unspecified, fetus 1; O30.043 Twin pregnancy, dichorionic/diamniotic, third trimester; Z3A.34 34 weeks gestation of pregnancy; O36.5930 Maternal care for other known or suspected poor fetal growth, third trimester, not applicable or unspecified; O99.013 Anemia complicating pregnancy, third trimester; O99.343 Other mental disorders complicating pregnancy, third trimester; F31.9 Bipolar disorder, unspecified; O99.333 Smoking (tobacco) complicating pregnancy, third trimester; F17.210 Nicotine dependence, cigarettes, uncomplicated; O98.813 Other maternal infectious and parasitic diseases complicating pregnancy, third trimester; B95.1 Streptococcus, group B, as the cause of diseases classified elsewhere; Z22.330 Carrier of Group B streptococcus; R51 Headache
CPT/HCPCS: 59025; G0378; J7120

== ENCOUNTER 2017-04-16 10:12 | Outpatient (CLI) | payer OTHER ==
[~2017-04-16] VITALS: Ht 149.9 cm; Wt 66.2 kg
[~2017-04-16 10:12] MED LIST changes: +FAMOTIDINE20 MG PO; +PROCARDIA10 MG PO
[2017-04-16 10:41] VITALS: BP 112/77
== END 2017-04-16 13:05 | disposition left against medical advice (07) ==
LOC: LDRP-OP 10:12 → 2WEST 10:13 → LDRP-OP 06-27 21:47
DX: O36.5930 Maternal care for other known or suspected poor fetal growth, third trimester, not applicable or unspecified (principal); O30.043 Twin pregnancy, dichorionic/diamniotic, third trimester; Z3A.34 34 weeks gestation of pregnancy; O32.1XX2 Maternal care for breech presentation, fetus 2; Z53.20 Procedure and treatment not carried out because of patient's decision for unspecified reasons
CPT/HCPCS: 59025; G0378

== ENCOUNTER 2017-04-21 17:43 | Outpatient (CLI) | payer OTHER ==
[~2017-04-21] VITALS: Ht 152.4 cm; Wt 66.3 kg
[2017-04-21 18:43] VITALS: BP 103/75
== END 2017-04-21 19:37 | disposition home or self-care (01) ==
LOC: LDRP-OP 17:43 → 2WEST 17:44 → LDRP-OP 06-26 13:50
DX: O30.043 Twin pregnancy, dichorionic/diamniotic, third trimester (principal); Z3A.35 35 weeks gestation of pregnancy
CPT/HCPCS: 59025; G0378

== ENCOUNTER 2017-04-22 11:51 | Inpatient (IN) | payer OTHER ==
[~2017-04-22] VITALS: Ht 152.4 cm; Wt 66.0 kg
[2017-04-22 12:34] VITALS: BP 123/75
[2017-04-22 13:05] LABS: EOSINOPHIL (%) 0.3 % (0-5); HEMATOCRIT 30.7 % (36.0-46.0); IMMATURE GRANULOCYTE (%) 0.4 % (0.0-0.7); INSTRUMENT ABS NEUTROPHIL CT 5.5 K/uL; LYMPHOCYTE COUNT 1.4 K/uL (1.0-2.8); MCH 31.3 PG (29.0-34.0); MCHC 33.2 G/DL (30.0-36.0); MCV 94.2 FL (83-99); MEAN PLAT.VOLUME 11.8 uM^3 (9.5-12.4); MONOCYTE COUNT 0.4 K/uL (0-0.8); NEUTROPHIL (%) 75.1 % (45-76); NEUTROPHIL COUNT 5.5 K/uL (1.8-6.4); PLATELET COUNT 175 K/uL (156-360); RBC DIS.WIDTH-CV 16.2 % (11.8-14.6); RBC DIS.WIDTH-SD 55.8 % (39-53); RED BLOOD COUNT 3.26 M/uL (3.80-5.20); WHITE BLOOD COUNT 7.4 K/uL (4.1-10.2)
[2017-04-22 15:08] VITALS: BP 120/79
[2017-04-22 18:23] VITALS: BP 118/67
[2017-04-22 19:12] VITALS: BP 115/86
[2017-04-22 19:44] VITALS: BP 122/59
[2017-04-22 22:02] VITALS: BP 124/69
[2017-04-23 00:33] VITALS: BP 109/62
[2017-04-23 06:29] LABS: EOSINOPHIL (%) 0.2 % (0-5); HEMATOCRIT 21.9 % (36.0-46.0); IMMATURE GRANULOCYTE (%) 0.2 % (0.0-0.7); INSTRUMENT ABS NEUTROPHIL CT 4.1 K/uL; LYMPHOCYTE COUNT 1.2 K/uL (1.0-2.8); MCH 31.9 PG (29.0-34.0); MCHC 33.8 G/DL (30.0-36.0); MCV 94.4 FL (83-99); MONOCYTE (%) 6.8 % (3-12); MONOCYTE COUNT 0.4 K/uL (0-0.8); NEUTROPHIL (%) 72.3 % (45-76); NEUTROPHIL COUNT 4.1 K/uL (1.8-6.4); PLATELET COUNT 146 K/uL (156-360); RBC DIS.WIDTH-CV 16.1 % (11.8-14.6); RBC DIS.WIDTH-SD 55.3 % (39-53); RED BLOOD COUNT 2.32 M/uL (3.80-5.20); WHITE BLOOD COUNT 5.7 K/uL (4.1-10.2)
[2017-04-23 07:34] VITALS: BP 125/78
[2017-04-23 11:00] VITALS: BP 111/69
[2017-04-23 15:00] VITALS: BP 131/86
[2017-04-23 19:31] VITALS: BP 120/59
[2017-04-23 22:18] VITALS: BP 125/80
[2017-04-24 02:23] VITALS: BP 127/81
[2017-04-24] MEDS ORDERED: IBUPROFEN800 MG PO (09:37)
[2017-04-24] MEDS ORDERED: ENDOCET 5-3251 EACH PO (09:37)
== END 2017-04-24 11:10 | disposition home or self-care (01) | DRG 765 ==
LOC: LDRP-OP 11:51 → 2WEST 11:52 → LDRP-OP 06-27 19:51
PROVIDERS: Obstetrics & Gynecology Obstetrics
DX: O32.1XX2 Maternal care for breech presentation, fetus 2 (principal); O30.043 Twin pregnancy, dichorionic/diamniotic, third trimester; O36.5932 Maternal care for other known or suspected poor fetal growth, third trimester, fetus 2; O99.02 Anemia complicating childbirth; D62 Acute posthemorrhagic anemia; O99.824 Streptococcus B carrier state complicating childbirth; O99.334 Smoking (tobacco) complicating childbirth; F17.200 Nicotine dependence, unspecified, uncomplicated; O99.344 Other mental disorders complicating childbirth; F31.9 Bipolar disorder, unspecified; F41.9 Anxiety disorder, unspecified; O22.43 Hemorrhoids in pregnancy, third trimester; Z37.2 Twins, both liveborn; Z3A.35 35 weeks gestation of pregnancy
CPT/HCPCS: 85025; 86900; 86901; J0690; J1200; J1885; J2270; J2274; J2590; J3010; J7050; J7120

== ENCOUNTER 2017-05-05 18:26 | Emergency (ER) | payer OTHER ==
[~2017-05-05] VITALS: Ht 152.4 cm; Wt 54.0 kg
[~2017-05-05 18:26] MED LIST changes: +ENDOCET 5-3251 EACH PO; +IBUPROFEN800 MG PO
[2017-05-05] MEDS ORDERED: SERTRALINE HCL50 MG PO (19:15)
[2017-05-05] MEDS ORDERED: PERCOCET 5/31 TABLET PO (20:47)
[2017-05-05 21:10] VITALS: BP 119/67
== END 2017-05-05 21:13 | disposition home or self-care (01) ==
LOC: EME 18:26 → EXP 18:26
DX: R51 Headache (principal); G89.18 Other acute postprocedural pain; R10.9 Unspecified abdominal pain; F17.200 Nicotine dependence, unspecified, uncomplicated
CPT/HCPCS: 99281; 99284

== ENCOUNTER 2017-06-10 18:29 | Emergency (ER) | payer OTHER ==
[~2017-06-10 18:29] MED LIST changes: +PERCOCET 5/31 TABLET PO; +SERTRALINE HCL50 MG PO
== END 2017-06-10 18:59 | disposition left against medical advice (07) ==
LOC: EME 18:29
DX: M54.9 Dorsalgia, unspecified (principal); Z53.21 Procedure and treatment not carried out due to patient leaving prior to being seen by health care provider

== ENCOUNTER 2017-06-18 23:16 | Emergency (ER) | payer OTHER ==
[~2017-06-18] VITALS: Ht 152.4 cm; Wt 52.5 kg
[2017-06-18 23:55] LABS: HEMATOCRIT 35.9 % (36.0-46.0); MCH 29.1 PG (29.0-34.0); MCHC 32.9 G/DL (30.0-36.0); MCV 88.4 FL (83-99); MEAN PLAT.VOLUME 10.7 uM^3 (9.5-12.4); PLATELET COUNT 346 K/uL (156-360); RBC DIS.WIDTH-CV 14.2 % (11.8-14.6); RBC DIS.WIDTH-SD 45.4 % (39-53); RED BLOOD COUNT 4.06 M/uL (3.80-5.20)
[2017-06-19 00:08] LABS: CHLORIDE 103 mEq/L (99-109); POTASSIUM 3.9 mEq/L (3.7-5.4); SODIUM 136 mEq/L (136-147)
[2017-06-19 00:09] LABS: GLUCOSE 74 mg/dL (70-99)
[2017-06-19 00:11] LABS: ANION GAP 12 MEQ/L (2-14)
[2017-06-19 00:13] LABS: GFR ESTIMATE (CALCULATED) > 59 mL/min/
[2017-06-19 00:14] LABS: UREA NITROGEN (BUN) 28 mg/dL (9-23)
[2017-06-19 00:17] LABS: TROP-I INTERPRETATION NEGATIVE; TROPONIN-I < 0.01 ng/mL (0.0-0.30)
[2017-06-19] MEDS ORDERED: MEDROL DOSEPAK4 MG PO (01:38)
[2017-06-19 02:01] VITALS: BP 115/63
== END 2017-06-19 02:07 | disposition home or self-care (01) ==
LOC: EME 23:16
DX: L30.9 Dermatitis, unspecified (principal); F17.200 Nicotine dependence, unspecified, uncomplicated
CPT/HCPCS: 71020; 80048; 84484; 85027; 93005

== ENCOUNTER 2017-07-10 19:57 | Emergency (ER) | payer OTHER ==
[~2017-07-10] VITALS: Ht 152.4 cm; Wt 57.5 kg
[2017-07-10 20:04] VITALS: BP 112/72
== END 2017-07-10 21:36 | disposition left against medical advice (07) ==
LOC: EME 19:57
DX: R10.11 Right upper quadrant pain (principal); R10.12 Left upper quadrant pain; Z53.21 Procedure and treatment not carried out due to patient leaving prior to being seen by health care provider
CPT/HCPCS: 80053; 81003; 83690; 84702; 85027

== ENCOUNTER 2017-07-28 15:09 | Emergency (ER) | payer OTHER ==
[~2017-07-28] VITALS: Ht 152.4 cm; Wt 55.7 kg
[2017-07-28] MEDS ORDERED: MOTRIN800 MG PO (15:25)
[2017-07-28] MEDS ORDERED: PEN-VEE K,VEET500 MG PO (15:25)
[2017-07-28 15:41] VITALS: BP 121/70
== END 2017-07-28 15:41 | disposition home or self-care (01) ==
LOC: EME 15:09
DX: K02.9 Dental caries, unspecified (principal); I51.7 Cardiomegaly; K76.9 Liver disease, unspecified; F17.200 Nicotine dependence, unspecified, uncomplicated
CPT/HCPCS: 99281; 99283

== ENCOUNTER 2017-08-03 15:18 | Emergency (ER) | payer OTHER ==
[~2017-08-03] VITALS: Ht 152.4 cm; Wt 55.3 kg
[~2017-08-03 15:18] MED LIST changes: +PEN-VEE K,VEET500 MG PO
[2017-08-03] MEDS ORDERED: TRAMADOL HCL50 MG PO (16:03)
[2017-08-03 16:14] VITALS: BP 108/71
== END 2017-08-03 16:15 | disposition home or self-care (01) ==
LOC: EME 15:18
DX: K08.89 Other specified disorders of teeth and supporting structures (principal); F17.200 Nicotine dependence, unspecified, uncomplicated
CPT/HCPCS: 99281; 99284

== ENCOUNTER 2017-08-16 16:42 | Emergency (ER) | payer OTHER ==
[~2017-08-16 16:42] MED LIST changes: +TRAMADOL HCL50 MG PO
[2017-08-16 17:35] VITALS: BP 99/74
[2017-08-21] MEDS ORDERED: MOTRIN800 MG PO (20:42)
== END 2017-08-16 17:39 | disposition home or self-care (01) ==
LOC: EME 16:42
DX: M25.512 Pain in left shoulder (principal); F17.200 Nicotine dependence, unspecified, uncomplicated
CPT/HCPCS: 99281; 99283

== ENCOUNTER 2017-10-01 07:44 | Emergency (ER) | payer OTHER ==
[~2017-10-01] VITALS: Ht 152.4 cm; Wt 55.7 kg
[2017-10-01 07:47] VITALS: BP 98/66
== END 2017-10-01 08:21 | disposition left against medical advice (07) ==
LOC: EME 07:44
DX: R10.9 Unspecified abdominal pain (principal); R19.7 Diarrhea, unspecified; Z53.21 Procedure and treatment not carried out due to patient leaving prior to being seen by health care provider

== ENCOUNTER 2017-12-14 16:58 | Emergency (ER) | payer OTHER ==
[~2017-12-14] VITALS: Ht 152.4 cm; Wt 59.4 kg
[2017-12-14 17:28] VITALS: BP 79/62
== END 2017-12-14 22:07 | disposition left against medical advice (07) ==
LOC: EME 16:58
DX: K08.89 Other specified disorders of teeth and supporting structures (principal); Z53.21 Procedure and treatment not carried out due to patient leaving prior to being seen by health care provider

== ENCOUNTER 2018-01-26 11:29 | Emergency (ER) | payer OTHER ==
[~2018-01-26] VITALS: Ht 162.6 cm; Wt 58.5 kg
[2018-01-26 12:56] VITALS: BP 99/57
[2018-01-26 13:02] LABS: HEMATOCRIT 36.9 % (36.0-46.0); HEMOGLOBIN 12.8 G/DL (11.9-15.5); MCH 31.2 PG (29.0-34.0); MCHC 34.7 G/DL (30.0-36.0); PLATELET COUNT 331 K/uL (156-360); RBC DIS.WIDTH-CV 13.6 % (11.8-14.6); RBC DIS.WIDTH-SD 44.7 % (39-53); WHITE BLOOD COUNT 8.4 K/uL (4.1-10.2)
== END 2018-01-26 13:36 | disposition home or self-care (01) ==
LOC: EME 11:29
PROVIDERS: Emergency Medicine
DX: R53.1 Weakness (principal); F90.9 Attention-deficit hyperactivity disorder, unspecified type; F31.9 Bipolar disorder, unspecified; F32.9 Major depressive disorder, single episode, unspecified
CPT/HCPCS: 85027; 99281; 99284

== ENCOUNTER 2018-02-19 18:52 | Emergency (ER) | payer OTHER ==
[~2018-02-19] VITALS: Ht 152.4 cm; Wt 59.2 kg
[2018-02-19 19:02] VITALS: BP 92/73
[2018-02-19 20:05] LABS: HEMATOCRIT 36.8 % (36.0-46.0); HEMOGLOBIN 12.8 G/DL (11.9-15.5); MCH 30.8 PG (29.0-34.0); MCHC 34.8 G/DL (30.0-36.0); MCV 88.7 FL (83-99); PLATELET COUNT 323 K/uL (156-360); RBC DIS.WIDTH-CV 13.3 % (11.8-14.6); RBC DIS.WIDTH-SD 43.5 % (39-53); RED BLOOD COUNT 4.15 M/uL (3.80-5.20); WHITE BLOOD COUNT 7.9 K/uL (4.1-10.2)
[2018-02-19 20:16] LABS: CHLORIDE 105 mEq/L (99-109); POTASSIUM 3.7 mEq/L (3.7-5.4); SODIUM 139 mEq/L (136-147)
[2018-02-19 20:17] LABS: GLUCOSE 86 mg/dL (70-99)
[2018-02-19 20:21] LABS: CREATININE 0.6 mg/dL (0.6-1.3); GFR ESTIMATE (CALCULATED) > 59 mL/min/; TROP-I INTERPRETATION NEGATIVE; TROPONIN-I < 0.01 ng/mL (0.0-0.30)
[2018-02-19 20:22] LABS: UREA NITROGEN (BUN) 22 mg/dL (9-23)
== END 2018-02-19 23:52 | disposition left against medical advice (07) ==
LOC: EME 18:52
DX: R07.9 Chest pain, unspecified (principal); M54.9 Dorsalgia, unspecified; Z53.21 Procedure and treatment not carried out due to patient leaving prior to being seen by health care provider
CPT/HCPCS: 71046; 80048; 84484; 85027; 93005

== ENCOUNTER 2018-03-11 09:21 | Emergency (ER) | payer OTHER ==
[~2018-03-11] VITALS: Ht 152.4 cm; Wt 58.4 kg
[2018-03-11 09:47] LABS: HEMATOCRIT 35.7 % (36.0-46.0); HEMOGLOBIN 12.4 G/DL (11.9-15.5); MCH 30.8 PG (29.0-34.0); MCHC 34.7 G/DL (30.0-36.0); MCV 88.8 FL (83-99); PLATELET COUNT 351 K/uL (156-360); RBC DIS.WIDTH-CV 13.8 % (11.8-14.6); RBC DIS.WIDTH-SD 44.8 % (39-53); RED BLOOD COUNT 4.02 M/uL (3.80-5.20); WHITE BLOOD COUNT 8.9 K/uL (4.1-10.2)
[2018-03-11 09:57] LABS: ALBUMIN 4.7 g/dL (3.2-4.8)
[2018-03-11 09:58] LABS: CHLORIDE 108 mEq/L (99-109); POTASSIUM 3.7 mEq/L (3.7-5.4); SODIUM 139 mEq/L (136-147)
[2018-03-11 10:00] LABS: GLUCOSE 78 mg/dL (70-99); TOTAL PROTEIN 7.5 g/dL (6.4-8.3)
[2018-03-11 10:02] LABS: TOTAL BILIRUBIN 0.6 mg/dL (0.0-1.0)
[2018-03-11 10:03] LABS: ALKALINE PHOSPHATASE 49 IU/L (3-129)
[2018-03-11 10:04] LABS: CREATININE 0.6 mg/dL (0.6-1.3); GFR ESTIMATE (CALCULATED) > 59 mL/min/
[2018-03-11 10:05] LABS: AST (GOT) 20 IU/L (2-34); UREA NITROGEN (BUN) 21 mg/dL (9-23)
[2018-03-11 10:06] LABS: ALT (GPT) 20 IU/L (3-49)
[2018-03-11 10:09] LABS: TROP-I INTERPRETATION NEGATIVE; TROPONIN-I < 0.01 ng/mL (0.0-0.30)
[2018-03-11 10:26] LABS: APPEARANCE CLOUDY ((CLEAR)); BILIRUBIN NEGATIVE; BLOOD NEGATIVE; COLOR YELLOW ((YELLOW)); GLUCOSE (STRIP) NEGATIVE; KETONES NEGATIVE; LEUKOCYTES LARGE; NITRITE NEGATIVE; PROTEIN (STRIP) NEGATIVE; UROBILINOGEN 0.2 MG/DL (0.2-1.0)
[2018-03-11 10:42] LABS: EPITHELIAL CELLS 2+ /HPF; MUCUS NONE SEEN /LPF; RED BLOOD CELLS 0-5 /HPF (0-5)
[2018-03-11 10:43] LABS: BACTERIA 2+ /HPF; UCUL ADDED? YES
[2018-03-11 12:12] LABS: D-DIMER ELISA < 150.00 ng/mLDDU (<230)
[2018-03-11] MEDS ORDERED: CIPRO500 MG PO (12:33)
[2018-03-11 12:48] VITALS: BP 100/71
== END 2018-03-11 12:49 | disposition home or self-care (01) ==
LOC: EME 09:21
PROVIDERS: Emergency Medicine
DX: N39.0 Urinary tract infection, site not specified (principal); R07.9 Chest pain, unspecified; F90.9 Attention-deficit hyperactivity disorder, unspecified type; F17.200 Nicotine dependence, unspecified, uncomplicated; F31.9 Bipolar disorder, unspecified
CPT/HCPCS: 71046; 80048; 80053; 81003; 84484; 84702; 85027; 85379; 87086; 93005; 99281; 99283

== ENCOUNTER 2018-03-16 15:12 | Emergency (ER) | payer OTHER ==
[~2018-03-16] VITALS: Ht 152.4 cm; Wt 58.0 kg
[~2018-03-16 15:12] MED LIST changes: +CIPRO500 MG PO
[2018-03-16] MEDS ORDERED: ZOLOFT25 MG PO (16:24)
[2018-03-16] MEDS ORDERED: TRAZODONE HCL50 MG PO (16:25)
[2018-03-16] MEDS ORDERED: ABILIFY2 MG PO (16:25)
[2018-03-16 17:46] LABS: BASOPHIL (%) 0.9 % (0-1); BASOPHIL COUNT 0.1 K/uL (0-0.1); EOSINOPHIL COUNT 0.2 K/uL (0-0.3); HEMATOCRIT 31.4 % (36.0-46.0); HEMOGLOBIN 10.7 G/DL (11.9-15.5); IMMATURE GRANULOCYTE (%) 0.3 % (0.0-0.7); LYMPHOCYTE (%) 34.2 % (15-42); LYMPHOCYTE COUNT 2.5 K/uL (1.0-2.8); MCH 30.7 PG (29.0-34.0); MCHC 34.1 G/DL (30.0-36.0); MCV 90.2 FL (83-99); MONOCYTE (%) 5.7 % (3-12); MONOCYTE COUNT 0.4 K/uL (0-0.8); NEUTROPHIL (%) 56.9 % (45-76); NEUTROPHIL COUNT 4.2 K/uL (1.8-6.4); PLATELET COUNT 309 K/uL (156-360); RBC DIS.WIDTH-CV 13.8 % (11.8-14.6); RBC DIS.WIDTH-SD 45.4 % (39-53); RED BLOOD COUNT 3.48 M/uL (3.80-5.20); WHITE BLOOD COUNT 7.4 K/uL (4.1-10.2)
[2018-03-16 17:55] LABS: ALBUMIN 4.2 g/dL (3.2-4.8)
[2018-03-16 17:56] LABS: CHLORIDE 106 mEq/L (99-109); POTASSIUM 3.9 mEq/L (3.7-5.4); SODIUM 136 mEq/L (136-147)
[2018-03-16 17:58] LABS: GLUCOSE 74 mg/dL (70-99); TOTAL PROTEIN 6.4 g/dL (6.4-8.3)
[2018-03-16 18:00] LABS: TOTAL BILIRUBIN 0.5 mg/dL (0.0-1.0)
[2018-03-16 18:01] LABS: ALKALINE PHOSPHATASE 45 IU/L (3-129)
[2018-03-16 18:02] LABS: CREATININE 0.5 mg/dL (0.6-1.3); GFR ESTIMATE (CALCULATED) > 59 mL/min/
[2018-03-16 18:03] LABS: AST (GOT) 15 IU/L (2-34); UREA NITROGEN (BUN) 21 mg/dL (9-23)
[2018-03-16 18:04] LABS: ALT (GPT) 19 IU/L (3-49)
[2018-03-16 18:05] LABS: LIPASE 22 U/L (1.0-51.0)
[2018-03-16 18:08] LABS: TROP-I INTERPRETATION NEGATIVE; TROPONIN-I < 0.01 ng/mL (0.0-0.30)
[2018-03-16 18:11] LABS: QUANTITATIVE HCG < 4.0 MIU/ML
[2018-03-16 18:35] LABS: APPEARANCE CLEAR ((CLEAR)); BILIRUBIN NEGATIVE; BLOOD MODERATE; COLOR YELLOW ((YELLOW)); GLUCOSE (STRIP) NEGATIVE; KETONES NEGATIVE; LEUKOCYTES NEGATIVE; NITRITE NEGATIVE; PROTEIN (STRIP) NEGATIVE; SPECIFIC GRAVITY 1.024 (1.000-1.030); UROBILINOGEN 0.2 MG/DL (0.2-1.0)
[2018-03-16 18:40] LABS: BACTERIA NONE SEEN /HPF; EPITHELIAL CELLS 1+ /HPF; MUCUS NONE SEEN /LPF; RED BLOOD CELLS 0-5 /HPF (0-5); UCUL ADDED? NO; WHITE BLOOD CELLS 0-5 /HPF (0-5)
[2018-03-16 20:20] VITALS: BP 90/70
== END 2018-03-16 20:47 | disposition left against medical advice (07) ==
LOC: EME 15:12
PROVIDERS: Emergency Medicine
DX: R42 Dizziness and giddiness (principal); I95.9 Hypotension, unspecified; E61.1 Iron deficiency; F32.9 Major depressive disorder, single episode, unspecified; F41.9 Anxiety disorder, unspecified; F90.9 Attention-deficit hyperactivity disorder, unspecified type; F17.200 Nicotine dependence, unspecified, uncomplicated
CPT/HCPCS: 80053; 81003; 83690; 84484; 84702; 85025; 93005; 99281; 99285

== ENCOUNTER 2018-04-17 15:19 | Emergency (ER) | payer OTHER ==
[~2018-04-17] VITALS: Ht 162.6 cm; Wt 56.9 kg
[2018-04-17 16:46] LABS: HEMATOCRIT 33.4 % (36.0-46.0); HEMOGLOBIN 11.6 G/DL (11.9-15.5); MCH 30.3 PG (29.0-34.0); MCHC 34.7 G/DL (30.0-36.0); MCV 87.2 FL (83-99); PLATELET COUNT 265 K/uL (156-360); RBC DIS.WIDTH-CV 13.4 % (11.8-14.6); RBC DIS.WIDTH-SD 42.8 % (39-53); RED BLOOD COUNT 3.83 M/uL (3.80-5.20); WHITE BLOOD COUNT 10.1 K/uL (4.1-10.2)
[2018-04-17 16:55] LABS: ALBUMIN 4.5 g/dL (3.2-4.8); CHLORIDE 106 mEq/L (99-109); POTASSIUM 3.9 mEq/L (3.7-5.4); SODIUM 137 mEq/L (136-147)
[2018-04-17 16:57] LABS: GLUCOSE 68 mg/dL (70-99)
[2018-04-17 16:58] LABS: TOTAL PROTEIN 7.1 g/dL (6.4-8.3)
[2018-04-17 16:59] LABS: TOTAL BILIRUBIN 0.8 mg/dL (0.0-1.0)
[2018-04-17 17:00] LABS: SERUM ETHYL ALCOHOL < 10 mg/dL
[2018-04-17 17:01] LABS: ALKALINE PHOSPHATASE 59 IU/L (3-129); CREATININE 0.6 mg/dL (0.6-1.3); GFR ESTIMATE (CALCULATED) > 59 mL/min/
[2018-04-17 17:02] LABS: UREA NITROGEN (BUN) 21 mg/dL (9-23)
[2018-04-17 17:03] LABS: AST (GOT) 16 IU/L (2-34)
[2018-04-17 17:04] LABS: ALT (GPT) 15 IU/L (3-49)
[2018-04-17 17:10] LABS: QUANTITATIVE HCG < 4.0 MIU/ML; TROP-I INTERPRETATION NEGATIVE; TROPONIN-I < 0.01 ng/mL (0.0-0.30)
[2018-04-17 18:42] LABS: APPEARANCE SL.HAZY ((CLEAR)); BILIRUBIN NEGATIVE; BLOOD NEGATIVE; COLOR YELLOW ((YELLOW)); GLUCOSE (STRIP) NEGATIVE; KETONES NEGATIVE; LEUKOCYTES SMALL; NITRITE NEGATIVE; PROTEIN (STRIP) NEGATIVE; UROBILINOGEN 0.2 MG/DL (0.2-1.0)
[2018-04-17 18:52] LABS: AMPHETAMINE NEGATIVE (500 ng/mL); BARBITURATES NEGATIVE (200 ng/mL); BENZODIAZEPINES NEGATIVE (150 ng/mL); BUPRENORPHINE NEGATIVE (10 ng/mL); COCAINE NEGATIVE (150 ng/mL); METHADONE NEGATIVE (200 ng/mL); METHAMPHETAMINE NEGATIVE (500 ng/mL); OPIATES (MORPHINE) NEGATIVE (100 ng/mL); OXYCODONE NEGATIVE (100 ng/mL); PHENCYCLIDINE NEGATIVE (25 ng/mL); PROPOXYPHENE NEGATIVE (300 ng/mL); THC CANNABINOIDS NEGATIVE (50 ng/mL); TRICYCLIC ANTIDEPRESSANTS NEGATIVE (300 ng/mL)
[2018-04-17 19:30] LABS: BACTERIA 1+ /HPF; EPITHELIAL CELLS 3+ /HPF; MUCUS NONE SEEN /LPF; RED BLOOD CELLS 0-5 /HPF (0-5); WHITE BLOOD CELLS 0-5 /HPF (0-5)
[2018-04-17 19:38] VITALS: BP 106/78
== END 2018-04-17 19:44 | disposition home or self-care (01) ==
LOC: EME 15:19
PROVIDERS: Emergency Medicine
DX: I95.1 Orthostatic hypotension (principal); E86.0 Dehydration; F31.9 Bipolar disorder, unspecified; F90.9 Attention-deficit hyperactivity disorder, unspecified type; F32.9 Major depressive disorder, single episode, unspecified; F17.200 Nicotine dependence, unspecified, uncomplicated
CPT/HCPCS: 71045; 80053; 81003; 82948; 84484; 84702; 85027; 93005; 99281; 99285; G0480

== ENCOUNTER 2018-05-17 16:15 | Emergency (ER) | payer OTHER ==
[~2018-05-17] VITALS: Ht 152.4 cm; Wt 58.5 kg
[2018-05-17 17:48] LABS: HEMATOCRIT 35.1 % (36.0-46.0); MCH 30.5 PG (29.0-34.0); MCHC 34.2 G/DL (30.0-36.0); MCV 89.3 FL (83-99); PLATELET COUNT 323 K/uL (156-360); RBC DIS.WIDTH-CV 13.8 % (11.8-14.6); RBC DIS.WIDTH-SD 45.1 % (39-53); RED BLOOD COUNT 3.93 M/uL (3.80-5.20); WHITE BLOOD COUNT 9.9 K/uL (4.1-10.2)
[2018-05-17 18:02] LABS: ALBUMIN 4.5 g/dL (3.2-4.8); CHLORIDE 107 mEq/L (99-109); POTASSIUM 3.9 mEq/L (3.7-5.4); SODIUM 136 mEq/L (136-147)
[2018-05-17 18:04] LABS: GLUCOSE 77 mg/dL (70-99)
[2018-05-17 18:05] LABS: TOTAL PROTEIN 7.3 g/dL (6.4-8.3)
[2018-05-17 18:06] LABS: TOTAL BILIRUBIN 0.4 mg/dL (0.0-1.0)
[2018-05-17 18:08] LABS: ALKALINE PHOSPHATASE 53 IU/L (3-129); CREATININE 0.7 mg/dL (0.6-1.3); GFR ESTIMATE (CALCULATED) > 59 mL/min/
[2018-05-17 18:09] LABS: UREA NITROGEN (BUN) 24 mg/dL (9-23)
[2018-05-17 18:10] LABS: AST (GOT) 16 IU/L (2-34)
[2018-05-17 18:11] LABS: ALT (GPT) 15 IU/L (3-49); LIPASE 25 U/L (1.0-51.0)
[2018-05-17 18:15] LABS: TROP-I INTERPRETATION NEGATIVE; TROPONIN-I < 0.01 ng/mL (0.0-0.30)
[2018-05-17 18:17] LABS: QUANTITATIVE HCG < 4.0 MIU/ML
[2018-05-17 18:46] VITALS: BP 98/52
== END 2018-05-17 18:48 | disposition home or self-care (01) ==
LOC: EME 16:15
PROVIDERS: Nurse Practitioner Family
DX: R07.9 Chest pain, unspecified (principal); R05 Cough; F17.200 Nicotine dependence, unspecified, uncomplicated; R00.1 Bradycardia, unspecified
CPT/HCPCS: 71046; 80053; 83690; 84484; 84702; 85027; 93005; 99281; 99284